=== PATIENT | male | born 1980 | race African-American/Black ===

== ENCOUNTER → 2017-05-26 | Outpatient (CLI) | payer OTHER ==
--- NOTE | 2017-05-26 12:13 | REP ---
MRI of the left knee: There are no comparison studies. The study is performed with proton density and T2 data sets in sagittal, axial and coronal projections. There is a small volume of joint fluid. The patellar and trochlear articular cartilage is unremarkable. The medial and lateral compartment articular cartilage is unremarkable. There is no marrow edema. I suspect there is truncation of the free margin of the lateral meniscus and a horizontal cleavage tear extending from the free margin to the meniscocapsular junction and possibly a tiny para meniscal cyst at the meniscocapsular junction. There is horizontal T2 signal in the body and posterior horn of the medial meniscus that does not quite extend to the free margin however, extends to the meniscocapsular junction and could represent an intrasubstance tear and meniscocapsular separation. The anterior posterior cruciate ligaments are unremarkable. The medial collateral ligament and lateral collateral ligament complex are unremarkable. The quadriceps and patellar tendons are unremarkable. Impression: Small volume of joint fluid. Suspect horizontal cleavage tear of the lateral meniscus, fraying of the free edge of the lateral meniscus and small para meniscal cyst of the lateral meniscus. Suspect intrasubstance tear of the body posterior horn of the medial meniscus and possible meniscal capsular separation. The ligaments and tendons are unremarkable. Signed by Abimael Ortiz MD 05/26/2017 12:04 P
== END ==
LOC: M RAD 09:25
PROVIDERS: ATTEND Thoracic Surgery (Cardiothoracic Vascular Surgery)
DX: S83.201A Bucket-handle tear of unspecified meniscus, current injury, left knee, initial encounter (principal); X58.XXXA Exposure to other specified factors, initial encounter; Y92.89 Other specified places as the place of occurrence of the external cause; Y93.89 Activity, other specified; Y99.8 Other external cause status